=== PATIENT | female | born 1930 | race Caucasian/White ===

== ENCOUNTER 2019-11-18 14:53 | Emergency (ER) | payer MEDICARE ==
[~2019-11-18] VITALS: Ht 157.5 cm; Wt 63.0 kg
[2019-11-18] MEDS ORDERED: LIDOcaine 1% W/epiNEPHrine 1:200,000 10ml vial IJ ONE (16:00)
[2019-11-18] MEDS ORDERED: TETanus/Pertussis (Acell)/Diphther VAC/PF (Tdap-Adult) 0.5ml syringe IMVAC ONE (16:00)
--- NOTE | 2019-11-18 16:08 | NUR ---
Transported to CT scan via gurney with the side rails raised
[2019-11-18 17:35] VITALS: BP 176/97
== END 2019-11-18 17:38 | disposition home or self-care (01) ==
LOC: ER 14:54
DX: S01.81XA Laceration without foreign body of other part of head, initial encounter (principal); Z85.3 Personal history of malignant neoplasm of breast; Z88.2 Allergy status to sulfonamides; Z88.8 Allergy status to other drugs, medicaments and biological substances; W01.0XXA Fall on same level from slipping, tripping and stumbling without subsequent striking against object, initial encounter; Y93.01 Activity, walking, marching and hiking; Y92.89 Other specified places as the place of occurrence of the external cause; Y99.9 Unspecified external cause status
CPT/HCPCS: 12011; 70450; 90471; 90715; 99284